=== PATIENT | male | born 2000 | race Caucasian/White ===

== ENCOUNTER 2019-11-24 16:55 | Emergency (ER) | payer OTHER ==
[~2019-11-24] VITALS: Ht 170.2 cm; Wt 69.3 kg
[2019-11-24 18:17] LABS: BASO # 0.1 10^3/uL (0.0-0.2); BASO % 0.5 % (0.0-1.0); EOS # 0.2 10^3/uL (0.0-0.5); EOS % 1.7 % (0.0-3.0); HEMATOCRIT 43.4 % (42.0-52.0); HEMOGLOBIN 14.6 g/dl (13.5-17.5); LYMPH % 18.8 % (24.0-44.0); MEAN CORPUSCULAR HEMOGLOBIN 31.5 pg (27.0-33.0); MEAN CORPUSCULAR HGB CONC 33.6 g/dl (32.0-36.5); MEAN CORPUSCULAR VOLUME 93.5 fl (80.0-96.0); MONO # 1.2 10^3/uL (0.0-0.8); MONO % 10.9 % (0.0-5.0); NEUTROPHILS # 7.3 10^3/uL (1.5-8.5); NEUTROPHILS % 67.7 % (36.0-66.0); PLATELET COUNT, AUTOMATED 245 10^3/uL (150-450); RED BLOOD COUNT 4.64 10^6/uL (4.30-6.10); WHITE BLOOD COUNT 10.7 10^3/uL (4.0-10.0)
[2019-11-24 18:39] LABS: ERYTHROCYTE SEDIMENTATION RATE 25 mm/hr (0-15)
[2019-11-24 18:44] LABS: BLOOD UREA NITROGEN 10 MG/DL (7-18); CALCIUM LEVEL 8.2 MG/DL (8.5-10.1); CARBON DIOXIDE LEVEL 28 MEQ/L (21-32); CHLORIDE LEVEL 108 MEQ/L (98-107); GLOMERULAR FILTRATION RATE > 60.0 (>60); GLUCOSE, FASTING 83 MG/DL (70-100); SODIUM LEVEL 144 MEQ/L (136-145)
--- NOTE | 2019-11-24 18:56 | REPVR ---
PROCEDURE INFORMATION: Exam: US Scrotum Exam date and time: 11/24/2019 6:08 PM Age: 19 years old Clinical indication: Other: "leaking" fluid from scrotum; Scrotum pain; Additional info: Scrotal erythema/redness/pain TECHNIQUE: Imaging protocol: Real-time ultrasound of the scrotum and contents with color Doppler and image documentation. COMPARISON: No relevant prior studies available. FINDINGS: Right testicle: Normal right testicle measuring 4.2 x 2.1 x 2.5 cm. No mass. No torsion. Normal vascular flow. Left testicle: Normal left testicle measuring 4.7 x 2.1 x 3.3 cm. No mass. No torsion. Normal vascular flow. Epididymides: The head of the right epididymis measures 6 mm craniocaudally and is heterogeneous in echotexture. The head of the left epididymis measures 6 mm craniocaudally and is heterogeneous in echotexture. Both epididymides demonstrate increased vascular flow / hyperemia. Scrotum: Normal. IMPRESSION: 1. Bilateral acute epididymitis. 2. Both testicles appear normal. No torsion. Electronically signed by: Vish Juarez On 11/24/2019 18:55:32 PM
[2019-11-24] MEDS ORDERED: AMPICILLIN SOD/SULBACTAM SOD 3 GM in D5W MINI-BAG PLUS 100 ML IV ONE (19:45)
[2019-11-24] MEDS ORDERED: BACT800T5 PO (20:28)
[2019-11-24 20:36] VITALS: BP 119/68
== END 2019-11-24 20:38 | disposition home or self-care (01) ==
LOC: M ED 16:55
DX: N45.1 Epididymitis (principal); N49.2 Inflammatory disorders of scrotum